=== PATIENT | male | born 1975 ===

== ENCOUNTER 2021-10-06 13:38 | Emergency (ER) | payer OTHER ==
[~2021-10-06] VITALS: Ht 182 cm; Wt 103.0 kg
[2021-10-06] MEDS ORDERED: BUPIVACAINE 0.5% 30 ML (SENSORCAINE) VIAL INJ ONE (14:15)
[2021-10-06] MEDS ORDERED: LIDOCAINE 1% INJ 20 ML VIAL INJ ONE (14:15)
--- NOTE | 2021-10-06 14:34 | ED Lower Extremity ---
General Chief Complaint: Laceration Stated Complaint: RIGHT 4TH FINGER LAC Nursing Triage Note: PT REPORTS TO ED FROM [facility] FOR RT HAND FOURTH FINGER LACERATION. PT WAS DRIVEN TO ED BY BASE REMOVER. 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 PT STATES THAT HE PULL BACK ON THE BELT, HE PULLED BACK HIS HAND BUT WAS UNABLE TO DO SO QUICK ENOUGH AND HIS FINGER TIP GOT CAUGHT. BLEEDING CURRENTLY CONTROLLED. TIP OF FINGER BROUGHT IN PLASTIC BAG WRAPPED IN PAPER WITH AND ICE PACK. PT AMB. TO ROOM WITHOUT DIFFICULTY. PAPER ON FINGER FOR PRESSURE. BASE REMOVER WAITING IN LOBBY. Source: patient Exam Limitations: no limitations History of Present Illness Date Seen by Provider: Oct 06, 2021 Time Seen by Provider: 14:14 Initial Comments This is a well-appearing 45-year-old male who presented to the ER from his employment [employer] for complaints of injury to his right fourth finger. [place] that he was working on a machine and he was using his right hand to push the belt forward when his hand was caught in the machine. States that his last 3 fingers were caught and his fourth finger had partial amputation. He did bring the tip of his finger in with him. Bleeding controlled with direct pressure prior to arrival. Last tetanus unknown. Allergies and Home Medications Allergies Coded Allergies: No Known Drug Allergies (Unverified , 10/06/21) Patient Home Medication List Home Medication List Reviewed: Yes Dicloxacillin Sodium (Dicloxacillin Sodium) 500 Mg Capsule, 500 MG PO Q6H Prescribed by: STEPHEN DU on 10/06/21 1645 Oxycodone HCl/Acetaminophen (Oxycodone-Acetaminophen 5-325) 5 Mg-325 Mg Tablet, 1 EACH PO Q6H PRN for PAIN-MODERATE Prescribed by: STEPHEN DU on 10/06/21 1645 Review of Systems Constitutional: no symptoms reported Skin: see HPI Past Tcvllzk-Wcskfy-Jxrswk Hx Patient Social History Tobacco Use?: No Substance use?: No Alcohol Use?: Yes Alcohol type: Beer Alcohol Frequency: Once in a while Pt feels they are or have been: No Immunizations Up To Date First/Initial COVID19 Vaccinat: 2020 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 SURGERY;RT EYE SURGERY, RT KNEE SURGERY. Physical Exam Vital Signs Vital Signs - First Documented 10/06/21 13:52 Temp 35.1 Pulse 95 Resp 18 B/P (MAP) 151/105 (120) Pulse Ox 98 O2 Delivery Room Air Capillary Refill : Less Than 3 Seconds Height, Weight, BMI Height: '" Weight: lbs. oz. kg; 31.00 BMI Method: General Appearance: WD/WN, no apparent distress HEENT: PERRL/EOMI, normal ENT inspection Neck: full range of motion Cardiovascular: regular rate, rhythm, no murmur Respiratory: lungs clear, normal breath sounds Neurologic/Tendon: normal sensation, normal motor functions Neurologic/Psychiatric: no motor/sensory deficits, alert, normal mood/affect, oriented x 3 Skin: normal color, warm/dry Right hand: has partial amputation of the distal portion of his right fourth finger with skin tear of volar finger pad surface. Has swelling and erythema of his right middle finger. Progress/Results/Core Measures Results/Orders My Orders Orders - STEPHEN DU APRN Finger(S) (10/06/21 14:13) Bupivacaine 0.5% Injection (Sensorcaine (10/06/21 14:15) Lidocaine 1% Inj 20 Ml (Xylocaine 1% Inj (10/06/21 14:15) Dipht,Pertuss(Acell),Tet Adult (Boostrix (10/06/21 14:45) Finger(S) (10/06/21 14:50) Tranexamic Acid Injection (Cyklokapron I (10/06/21 15:45) Tranexamic Acid Injection (Cyklokapron I (10/06/21 15:34) Ampicillin For Im Use (Ampicillin For Im (10/06/21 16:30) Dicloxacillin Capsule (Dynapen Capsule) (10/06/21 16:30) Oxycodone/Apap 5/325mg Tablet (Percocet (10/06/21 16:30) Water (Sterile) For Injection (Sterile W (10/06/21 16:47) Water (Sterile) For Injection (Sterile W (10/06/21 17:15) Medications Given in ED Vital Signs/I&O 10/06/21 10/06/21 13:52 17:24 Temp 35.1 36.8 Pulse 95 77 Resp 18 18 B/P (MAP) 151/105 (120) 150/99 Pulse Ox 98 99 O2 Delivery Room Air Room Air Blood Pressure Mean: 120 Progress Progress Note : Progress Note Performed a digital block to his right ring finger. Cleansed the site with normal saline and chlorhexidine wash, prepped the webspace between his third and fifth digit with iodine, injected 50-50 solution of lidocaine 1% without epi and bupivacaine 0.25% without epi for a total of 6ml. Was able to achieve good digital block. Soaked finger in normal saline & iodine solution while awaiting x-rays. Then scrubbed site thoroughly with saline and antibacterial wash. He d oes have jagged bone exposure of his distal 4th phalanx. Discussed findings with Dr. Mccullough, orthopedic surgeon. Recommended smoothing down the bone and attempting to cover if possible with tissue. Was able to utilize rongeur to smooth out bone, however he does not have any skin left on the volar aspect of his fourth finger making closure difficult. We will go ahead and apply a Surgicel and have close follow-up tomorrow with orthopedic surgeon for further debridement. Prior to Surgicel application patient held TXA solution for 15 minutes to ebb bleeding. Applied Surgicel, 4x4, tube gauze. Tolerated well. Applied baseball splint to right 3rd finger. Tetanus updated. Given Ancef injection in ED. Will Rx antibiotics to pharmacy. Appointment scheduled with Dr. Mccullough for tomorrow at 3pm. Discharge POC reviewed with patient and he is agreeable with plan. Diagnostic Imaging Diagonstic Imaging: Xray Comments [facility] [place] NAME: JULIET FERGUSON [facility] REC#: [id number] PT STATUS: DEP ER : 1975 PHYSICIAN: STEPHEN DU BLOCK PILER ADMIT DATE: 10/06/21/ER Signed Date of Exam:10/06/21 FINGER(S) INDICATION: Traumatic injury with amputation. COMPARISON: None FINDINGS: Multiple radiographic views of the right 4th finger were obtained. There is transverse orientation of the distal tip of the right finger. This involves the distal soft tissues as well as the tuft of the distal phalanx. Proximal and distal interphalangeal joint spaces are maintained. No unexpected radiopaque foreign bodies are seen. Also of note, there is acute appearing obliquely-oriented fracture involving the proximal margins of the 3rd distal phalanx. There is no appreciable intra-articular extension. There is no significant displacement of the fracture fragments, although the fracture is only seen on the frontal and oblique views and is not visualized on the lateral view. IMPRESSION: 1. Partial amputation of the distal 4th finger involving underlying osseous soft tissue structures. 2. Acute fracture of the 3rd distal phalanx, as above. Dedicated radiographic views of the 3rd finger are recommended. Dictated by: Dictated on workstation # [id number] Dict: 10/06/21 1438 Trans: 10/06/212030 [facility] [id number] Interpreted by: BRYAN KWON MD Electronically signed by: BRYAN KWON MD 10/06/212030 Diagonstic Imaging: Xray Comments [facility], [place] NAME: JULIET FERGUSON [facility] REC#: [id number] PT STATUS: REG ER : 1975 PHYSICIAN: STEPHEN DU BLOCK PILER ADMIT DATE: 10/06/21/ER Signed Date of Exam:10/06/21 FINGER(S) INDICATION: Fracture of the distal phalanx, pain. COMPARISON: Imaging from the same date. TECHNIQUE: Three radiographs of the right hand, particularly the third digit dated 10/06/2021. FINDINGS: Acute slightly obliquely oriented fracture involving the proximal shaft of the third digit distal phalanx is identified. There is mild anterior displacement and slight distraction. No definite intra-articular extension of the fracture plane. Amputation of the most distal aspect of the fourth finger is identified, including portions of the tuft. This is similar to the prior examination. Chronic deformity of the distal second metacarpal is again identified. No additional acute fracture or dislocation. IMPRESSION: Acute mildly displaced fracturing involving the proximal shaft of the third digit distal phalanx without intra-articular extension. Partial amputation of the most distal aspect of the fourth finger as described above, stable from the prior exam. Dictated by: Dictated on workstation # [id number] Dict: 10/06/21 1505 Trans: 10/06/211649 [id number] Interpreted by: ROSALINA BOWLES MD Electronically signed by: ROSALINA BOWLES MD 10/06/211649 Departure Impression Primary Impression: Traumatic amputation of tip of right ring finger Additional Impression: Fracture of distal phalanx of right middle finger Disposition: 01 HOME, SELF-CARE Condition: Improved Departure-Patient Inst. Decision time for Depature: 16:36 Referrals: MICHELLE HUGHES MD (PCP/Family) Primary Care Physician Patient Instructions: Splint Care Add. Discharge Instructions: Plan: 1. Follow up with Dr. Mccullough at [facility] tomorrow at 3:00pm. 2. May take Oxycodone every 6 hours as needed for pain. 3. Keep hand elevated above your heart as much as possible over the next 3 days to reduce swelling. 4. May take Tylenol or Ibuprofen as needed for pain per package. Do not exceed 3000mg of Tylenol per day. Your pain medication includes Tylenol. 5. Take antibiotics as directed and complete full course even if you begin to feel better. 6. Keep dressing clean and dry. If you bleed through dressing and are unable to control with direct pressure, return to ER. 7. RETURN for any new, concerning, or worsening symptoms. All discharge instructions reviewed with patient and/or family. Voiced understanding. Scripts Oxycodone HCl/Acetaminophen (Oxycodone-Acetaminophen 5-325) 5 Mg-325 Mg Tablet 1 EACH PO Q6H PRN for PAIN-MODERATE MDD 6, #20 TAB 0 Refills Prov: STEPHEN DU BLOCK PILER 10/06/21 Dicloxacillin Sodium (Dicloxacillin Sodium) 500 Mg Capsule 500 MG PO Q6H for 7 Days, #28 CAP Prov: STEPHEN DU BLOCK PILER 10/06/21 Work/School Note: Work Release Form Date Seen in the Emergency Department: Oct 06, 2021 Return to Work: Oct 13, 2021 Restrictions: Need Release from Doctor Copy Copies To 1: CHILO MCCULLOUGH MD, STORMY D BLOCK PILER Oct 06, 2021 14:34
--- NOTE | 2021-10-06 14:43 | Diagnostic Imaging Report ---
INDICATION: Traumatic injury with amputation. COMPARISON: None FINDINGS: Multiple radiographic views of the right 4th finger were obtained. There is transverse orientation of the distal tip of the right finger. This involves the distal soft tissues as well as the tuft of the distal phalanx. Proximal and distal interphalangeal joint spaces are maintained. No unexpected radiopaque foreign bodies are seen. Also of note, there is acute appearing obliquely-oriented fracture involving the proximal margins of the 3rd distal phalanx. There is no appreciable intra-articular extension. There is no significant displacement of the fracture fragments, although the fracture is only seen on the frontal and oblique views and is not visualized on the lateral view. IMPRESSION: 1. Partial amputation of the distal 4th finger involving underlying osseous soft tissue structures. 2. Acute fracture of the 3rd distal phalanx, as above. Dedicated radiographic views of the 3rd finger are recommended. Dictated by: Dictated on workstation # [id number]
[2021-10-06] MEDS ORDERED: TETANUS,DIPTH,PERTUSS P/F (BOOSTRIX) 0.5 ML VIAL IM ONE (14:45)
--- NOTE | 2021-10-06 15:10 | Diagnostic Imaging Report ---
INDICATION: Fracture of the distal phalanx, pain. COMPARISON: Imaging from the same date. TECHNIQUE: Three radiographs of the right hand, particularly the third digit dated 10/06/2021. FINDINGS: Acute slightly obliquely oriented fracture involving the proximal shaft of the third digit distal phalanx is identified. There is mild anterior displacement and slight distraction. No definite intra-articular extension of the fracture plane. Amputation of the most distal aspect of the fourth finger is identified, including portions of the tuft. This is similar to the prior examination. Chronic deformity of the distal second metacarpal is again identified. No additional acute fracture or dislocation. IMPRESSION: Acute mildly displaced fracturing involving the proximal shaft of the third digit distal phalanx without intra-articular extension. Partial amputation of the most distal aspect of the fourth finger as described above, stable from the prior exam. Dictated by: Dictated on workstation # [id number]
[2021-10-06] MEDS ORDERED: TRANEXAMIC ACID 100 MG/ML 10 ML INJECTION ONE ×2 (15:34→15:45)
[2021-10-06] MEDS ORDERED: AMPICILLIN IM ONE (16:30)
[2021-10-06] MEDS ORDERED: DICLOXACILLIN 250 MG PO ONE (16:30)
[2021-10-06] MEDS ORDERED: oxyCODONE/APAP 5/325MG (PERCOCET 5) TABLET PO ONE (16:30)
[2021-10-06] MEDS ORDERED: OXYC1TAB11 PO (16:45)
[2021-10-06] MEDS ORDERED: DICL500C PO (16:45)
[2021-10-06] MEDS ORDERED: WATER (STERILE) FOR INJECTION 10 ML ONE (16:47)
[2021-10-06] MEDS ORDERED: WATER (STERILE) FOR INJ 10 ML BTL IV PRN (17:15)
[2021-10-06 17:24] VITALS: BP 150/99
== END 2021-10-06 17:24 | disposition home or self-care (01) ==
LOC: ER 13:41
DX: S62.632A Displaced fracture of distal phalanx of right middle finger, initial encounter for closed fracture (principal); S68.124A Partial traumatic metacarpophalangeal amputation of right ring finger, initial encounter; W23.0XXA Caught, crushed, jammed, or pinched between moving objects, initial encounter; Z23 Encounter for immunization; Y92.59 Other trade areas as the place of occurrence of the external cause; Y99.0 Civilian activity done for income or pay
CPT/HCPCS: 73140; 90715

== ENCOUNTER 2021-10-07 15:53 | Outpatient (CLI) | payer OTHER ==
[~2021-10-07] VITALS: Ht 182.9 cm; Wt 106.0 kg
[~2021-10-07 15:53] MED LIST changes: -CLIN-144 PO
[2021-10-08] MEDS ORDERED: OXYC1TAB11 PO (10:30)
[2021-10-08] MEDS ORDERED: CLIN-144 PO (10:30)
== END 2021-10-07 16:54 | disposition home or self-care (01) ==
LOC: PREOP 15:53
PROVIDERS: ATTEND Orthopaedic Surgery
DX: Z01.818 Encounter for other preprocedural examination (principal)

== ENCOUNTER → 2021-10-07 | Outpatient (CLI) | payer OTHER ==
[~2021-10-07] MED LIST: CLIN-144 PO; DICL500C PO; OXYC1TAB11 PO
== END ==
LOC: ORTHO 15:03
PROVIDERS: ATTEND Orthopaedic Surgery
DX: Z89.029 Acquired absence of unspecified finger(s) (principal)
CPT/HCPCS: 29130; G0463

== ENCOUNTER 2021-10-08 05:52 | Day surgery (SDC) | payer OTHER ==
[2021-10-08] VITALS (10 sets, daily range): BP systolic 118–148; BP diastolic 66–89
[~2021-10-08] VITALS: Ht 182.9 cm; Wt 106.0 kg
[2021-10-08] MEDS ORDERED: ONDANSETRON 4 MG/2 ML (SDV) Z0FRAN ONE (06:55)
[2021-10-08] MEDS ORDERED: proPOfol 200 MG/20 ML (DIPRIVAN) VIAL IV ONE (06:55)
[2021-10-08] MEDS ORDERED: LIDOCAINE PF 2% 5 ML (XYLOCAINE) VIAL ONE (06:55)
[2021-10-08] MEDS ORDERED: SEVOFLURANE (ULTANE) 15 ML INHAL SOLN ONE ×2 (06:55→09:27)
[2021-10-08] MEDS ORDERED: MIDAZOLAM 2 MG/2 ML (VERSED) VIAL ONE (06:56)
[2021-10-08] MEDS ORDERED: fentaNYL INJ 100 MCG/2 ML AMP ONE (06:56)
[2021-10-08] MEDS ORDERED: ceFAZolin 2 GM IV Premixed 50 ML IV ONE (07:00)
[2021-10-08] MEDS ORDERED: LACTATED RINGERS 1,000 ML IV PRN (07:00)
[2021-10-08] MEDS ORDERED: BUPIVACAINE 0.5% 30 ML (SENSORCAINE) VIAL ONE (07:43)
--- NOTE | 2021-10-08 07:52 | Progress Note-Pre Operative ---
Pre-Operative Progress Note H&P Reviewed The H&P was reviewed, patient examined and no changes noted. Date Seen by Provider: Oct 08, 2021 Time Seen by Provider: 07:45 Date H&P Reviewed: Oct 08, 2021 Time H&P Reviewed: 07:45 Pre-Operative Diagnosis: 1) R Ring Fingertip Amputation 2) R Middle Finger Distal Phalanx Fracture CHILO CARREON MD Oct 08, 2021 07:52
[2021-10-08] MEDS ORDERED: NEO/POLY/BAC (NEOSPORIN) OINT 15 GM TUBE ONE (10:01)
[2021-10-08] MEDS ORDERED: KETOROLAC 30 MG/ML VIAL ONE (10:06)
[2021-10-08] MEDS ORDERED: ONDANSETRON 4 MG/2 ML (SDV) Z0FRAN IVP PRN (10:30)
[2021-10-08] MEDS ORDERED: HYDROmorphone 2 MG/ML VIAL (DILAUDID) IV ONE (10:30)
[2021-10-08] MEDS ORDERED: OXYC1TAB11 PO (10:30)
[2021-10-08] MEDS ORDERED: CLIN-144 PO (10:30)
--- NOTE | 2021-10-08 10:39 | Operative Report - Ortho ---
Operative Report Surgeon (s)/Telescope Maintenance (s) Surgeon CHILO CARREON MD Telescope Maintenance n/a Pre-Operative Diagnosis 1) R Ring Fingertip Amputation 2) R Middle Finger Distal Phalanx Fracture Post-Operative Diagnosis same Operative Report Date of Procedure: Oct 08, 2021 Name of Procedure Performed: 1) Debridement of Right Ring Finger Traumatic Amputation Wound, V-Y Regional Flap Advancement, and 1 cm diameter Full Thickness Sking Grafting 2) Closed Treatment of Right Middle Finger Distal Phalanx Fracture Description & Findings After obtaining informed consent and marking the patient in the preoperative holding area, the patient was taken to the operating room. General anesthesia was induced. IV antibiotics were administered. Surgical timeout was taken. The right upper extremity was prepped and draped in the usual sterile fashion. Right ring finger wound was debrided of devitalized tissue with a Rongeur. Wound demonstrated no gross contamination. On the volar surface of the finger, a V-flap was raised. The V was advanced distally to obtain coverage towards the tip of the finger. 5-0 nylon was used to repair the based of the area for the stem of a Y. The edges were then repaired as well. On the dorsum of the finger, the remainder of the nail bed was removed. The edges of the nailbed were excised. The skin was approximated with 5-0 nylon. The very tip of the finger remained with a defect. A 1 cm diameter full thickness skin graft was harvested from the volar aspect of the forearm. 5-0 nylon was used to secure it over the tip of the finger. The forearm defect was closed with 3-0 vicryl and 4-0 nylon. X-rays of the hand had been reviewed and there was a minimally displaced distal phalanx fracture of the middle finger. This will be treated in closed fashion. A digital block was performed. Wounds were dressed with antibiotic ointment, xeroform, 4x4s, willy, cast padding, fiberglass splint incorporating the middle and ring fingers, and secured with JUAN PABLO wraps. Patient tolerated the procedure well and was stable to the recovery room. Anesthesia Type General LMA Estimated Blood Loss less than 20 mL Specimen(s) collected/removed None CHILO CARREON MD Oct 08, 2021 10:39
--- NOTE | 2021-10-09 06:57 | Anesthesia-General Post-Op ---
General Patient Condition Mental Status/LOC: Same as Preop Cardiovascular: Satisfactory Nausea/Vomiting: Absent Respiratory: Satisfactory Pain: Controlled Complications: Absent Post Op Complications Complications None Follow Up Care/Instructions Patient Instructions None needed. Anesthesia/Patient Condition Patient Condition Patient is doing well, no complaints, stable vital signs, no apparent adverse anesthesia problems. No complications reported per nursing. D/C home per [facility] Criteria: Yes FRANCIS MANCERA CRNA Oct 09, 2021 06:57
== END 2021-10-08 12:15 ==
LOC: SDC 05:52
PROVIDERS: ATTEND Orthopaedic Surgery
DX: S62.632A Displaced fracture of distal phalanx of right middle finger, initial encounter for closed fracture (principal); S68.624A Partial traumatic transphalangeal amputation of right ring finger, initial encounter; Z87.891 Personal history of nicotine dependence
CPT/HCPCS: 87081

== ENCOUNTER → 2021-11-11 | Outpatient (CLI) | payer OTHER ==
[~2021-11-11] MED LIST changes: +CLIN-144 PO
== END ==
LOC: ORTHO 13:19
PROVIDERS: ATTEND Orthopaedic Surgery
DX: Z47.89 Encounter for other orthopedic aftercare (principal); Z98.890 Other specified postprocedural states

== ENCOUNTER → 2021-12-02 | Outpatient (CLI) | payer OTHER | LOC: ORTHO 17:06 | PROVIDERS: ATTEND Orthopaedic Surgery | DX: Z47.89 Encounter for other orthopedic aftercare (principal) ==

== ENCOUNTER → 2021-12-25 | Outpatient (CLI) | payer OTHER | LOC: ORTHO 15:46 | PROVIDERS: ATTEND Orthopaedic Surgery | DX: Z47.89 Encounter for other orthopedic aftercare (principal) ==

== ENCOUNTER → 2022-01-29 | Outpatient (CLI) | payer OTHER | LOC: ORTHO 13:15 | PROVIDERS: ATTEND Orthopaedic Surgery | DX: Z47.89 Encounter for other orthopedic aftercare (principal) | CPT/HCPCS: 99213 ==

== ENCOUNTER → 2022-02-26 | Outpatient (CLI) | payer OTHER | LOC: ORTHO 12:48 | PROVIDERS: ATTEND Orthopaedic Surgery | DX: Z47.89 Encounter for other orthopedic aftercare (principal) | CPT/HCPCS: 99213 ==

== ENCOUNTER → 2022-04-30 | Outpatient (CLI) | payer OTHER | LOC: ORTHO 13:15 | PROVIDERS: ATTEND Orthopaedic Surgery | DX: Z09 Encounter for follow-up examination after completed treatment for conditions other than malignant neoplasm (principal) | CPT/HCPCS: 99213 ==

== ENCOUNTER 2022-05-14 09:09 | Outpatient (RCR) | payer OTHER | END 2022-05-19 | disposition home or self-care (01) | PROVIDERS: ATTEND Orthopaedic Surgery | DX: Z09 Encounter for follow-up examination after completed treatment for conditions other than malignant neoplasm (principal); Z98.890 Other specified postprocedural states ==

== ENCOUNTER → 2022-05-28 | Outpatient (CLI) | payer OTHER | LOC: ORTHO 13:50 | PROVIDERS: ATTEND Orthopaedic Surgery | DX: Z47.89 Encounter for other orthopedic aftercare (principal) | CPT/HCPCS: 99213 ==

== ENCOUNTER 2022-06-03 10:33 | Outpatient (RCR) | payer OTHER | END 2022-06-16 | disposition home or self-care (01) | PROVIDERS: ATTEND Orthopaedic Surgery | DX: Z09 Encounter for follow-up examination after completed treatment for conditions other than malignant neoplasm (principal); M79.641 Pain in right hand; R53.1 Weakness ==

== ENCOUNTER → 2022-07-09 | Outpatient (CLI) | payer OTHER | LOC: ORTHO 11:42 | PROVIDERS: ATTEND Orthopaedic Surgery | DX: Z47.89 Encounter for other orthopedic aftercare (principal) | CPT/HCPCS: 99213 ==

== ENCOUNTER → 2022-09-09 | Outpatient (CLI) | payer OTHER | LOC: ORTHO 08:27 | PROVIDERS: ATTEND Orthopaedic Surgery | DX: Z47.89 Encounter for other orthopedic aftercare (principal) | CPT/HCPCS: 99213 ==